=== PATIENT | female | born 1980 | race Caucasian/White ===

== ENCOUNTER 2017-11-16 07:02 | Day surgery (SDC) | payer OTHER ==
[~2017-11-16] VITALS: Ht 172.7 cm; Wt 99.8 kg
[~2017-11-16 07:02] MED LIST: ADVIL200 MG PO; AMITRIPTYLINE H10 MG PO; ATARAX,VISTARIL25 MG PO; Ascorbic Acid,Ester- PO; BENADRYL25 MG PO; BUTALBITAL COM1 EAC1 PO; Benadryl PO; CALCIUM PO; CARAFATE100 MG/ML; CARAFATE100 MG/ML PO; CELEBREX200 MG PO; CIPRO500 MG PO; CYANOCOBALAM1000 MCG PO; Carafate PO; DAILY VALUE1 EACH PO; DULCOLAX5 MG PO; ELAVIL25 MG PO; ESTRACE1 MG PO; EX-LAX5 MG PO; GAS-X80 MG PO; LEVOXYL50 MCG PO; Levothroid,Synthroid PO; OXYCODONE HCL10 MG PO; PERCOCET 10/1 TABLET PO; PERCOCET 5/31 TABLET PO; PYRIDIUM200 MG PO; Prilosec PO; SERTRALINE HCL25 MG PO; THERAGRAN1 TABLET PO; Tylenol Extra Streng PO; VALIUM10 MG PO; VITAMIN B12 PO; Valium PO; Vicodin,Lortab 5/500 PO; Vicodin,Norco 5/325 PO; ZANAFLEX2 M1 PO; ZOFRAN4 MG PO; ZOLOFT100 MG PO; [UNRECOGNIZED DRUG - OTHER] PO
== END 2017-11-16 08:43 | disposition home or self-care (01) ==
LOC: PAIN 07:02 → SDC 07:30 → PAIN 07:30
PROC: BR161ZZ Fluoroscopy of Lumbar Facet Joint(s) using Low Osmolar Contrast (ICD-10-PCS; principal; 2017-11-16)
PROC: 3E0T3TZ Introduction of Destructive Agent into Peripheral Nerves and Plexi, Percutaneous Approach (ICD-10-PCS; principal; 2017-11-16)
DX: M47.26 Other spondylosis with radiculopathy, lumbar region (principal); M51.16 Intervertebral disc disorders with radiculopathy, lumbar region; G89.29 Other chronic pain; M25.559 Pain in unspecified hip; Z79.891 Long term (current) use of opiate analgesic; F41.8 Other specified anxiety disorders; E03.9 Hypothyroidism, unspecified; G47.33 Obstructive sleep apnea (adult) (pediatric); Z98.84 Bariatric surgery status
CPT/HCPCS: J1030; J2250; J3010; S0020

== ENCOUNTER 2017-11-23 08:00 | Day surgery (SDC) | payer OTHER ==
[~2017-11-23] VITALS: Ht 172.7 cm; Wt 99.7 kg
== END 2017-11-23 09:35 | disposition home or self-care (01) ==
LOC: PAIN 08:00 → SDC 08:30 → PAIN 09:35
PROC: BR161ZZ Fluoroscopy of Lumbar Facet Joint(s) using Low Osmolar Contrast (ICD-10-PCS; principal; 2017-11-23)
PROC: 3E0T3TZ Introduction of Destructive Agent into Peripheral Nerves and Plexi, Percutaneous Approach (ICD-10-PCS; principal; 2017-11-23)
DX: M47.816 Spondylosis without myelopathy or radiculopathy, lumbar region (principal); G89.29 Other chronic pain; M54.5 Low back pain; M25.559 Pain in unspecified hip; M53.3 Sacrococcygeal disorders, not elsewhere classified; Z79.891 Long term (current) use of opiate analgesic
CPT/HCPCS: J1030; J1885; J2250; J3010; S0020

== ENCOUNTER 2018-02-28 11:05 | Emergency (ER) | payer OTHER ==
[~2018-02-28] VITALS: Ht 170.2 cm; Wt 101.7 kg
[~2018-02-28 11:05] MED LIST changes: +IRON325 M1 PO; +TOPAMAX25 MG PO; +TRAZODONE HCL100 MG PO
[2018-02-28 11:26] LABS: HEMOGLOBIN 12.7 G/DL (11.9-15.5); MCHC 33.4 G/DL (30.0-36.0); MCV 89.6 FL (83-99); PLATELET COUNT 276 K/uL (156-360); RBC DIS.WIDTH-CV 12.7 % (11.8-14.6); RBC DIS.WIDTH-SD 41.2 % (39-53); RED BLOOD COUNT 4.24 M/uL (3.80-5.20); WHITE BLOOD COUNT 5.5 K/uL (4.1-10.2)
[2018-02-28 11:41] LABS: APPEARANCE CLEAR ((CLEAR)); BILIRUBIN NEGATIVE; BLOOD NEGATIVE; COLOR STRAW ((YELLOW)); GLUCOSE (STRIP) NEGATIVE; KETONES NEGATIVE; LEUKOCYTES NEGATIVE; NITRITE NEGATIVE; PROTEIN (STRIP) NEGATIVE; SPECIFIC GRAVITY 1.003 (1.000-1.030); UCUL ADDED? NO; UROBILINOGEN 0.2 MG/DL (0.2-1.0)
[2018-02-28 11:50] LABS: ALBUMIN 4.5 g/dL (3.2-4.8)
[2018-02-28 11:51] LABS: CHLORIDE 108 mEq/L (99-109); POTASSIUM 3.8 mEq/L (3.7-5.4); SODIUM 146 mEq/L (136-147)
[2018-02-28 11:53] LABS: GLUCOSE 61 mg/dL (70-99); TOTAL PROTEIN 7.5 g/dL (6.4-8.3)
[2018-02-28 11:55] LABS: TOTAL BILIRUBIN 0.3 mg/dL (0.0-1.0)
[2018-02-28 11:56] LABS: ALKALINE PHOSPHATASE 106 IU/L (3-129); CREATININE 0.8 mg/dL (0.6-1.3); GFR ESTIMATE (CALCULATED) > 59 mL/min/
[2018-02-28 11:58] LABS: AST (GOT) 20 IU/L (2-34); UREA NITROGEN (BUN) 4 mg/dL (9-23)
[2018-02-28 11:59] LABS: ALT (GPT) 17 IU/L (3-49)
[2018-02-28 12:09] LABS: QUANTITATIVE HCG < 4.0 MIU/ML
[2018-02-28] MEDS ORDERED: BENTYL20 MG PO (14:48)
[2018-02-28 15:27] VITALS: BP 108/66
== END 2018-02-28 15:30 | disposition home or self-care (01) ==
LOC: EME 11:05
DX: R10.32 Left lower quadrant pain (principal); Z98.84 Bariatric surgery status; Z90.49 Acquired absence of other specified parts of digestive tract; Z90.710 Acquired absence of both cervix and uterus; K21.9 Gastro-esophageal reflux disease without esophagitis; J45.909 Unspecified asthma, uncomplicated; F41.9 Anxiety disorder, unspecified; F32.9 Major depressive disorder, single episode, unspecified; G43.909 Migraine, unspecified, not intractable, without status migrainosus; Z87.442 Personal history of urinary calculi; Z88.5 Allergy status to narcotic agent
CPT/HCPCS: 74018; 80053; 81003; 84702; 85027; 99281; 99284; J0500

== ENCOUNTER 2018-03-10 22:06 | Observation (INO) | payer OTHER ==
[~2018-03-10] VITALS: Ht 170.2 cm; Wt 101.2 kg
[~2018-03-10 22:06] MED LIST changes: +BENTYL20 MG PO; -TRAZODONE HCL100 MG PO; +TRAZODONE HCL150 MG PO
[2018-03-10 22:39] LABS: HEMATOCRIT 37.3 % (36.0-46.0); HEMOGLOBIN 12.3 G/DL (11.9-15.5); MCH 29.6 PG (29.0-34.0); MCV 89.7 FL (83-99); PLATELET COUNT 318 K/uL (156-360); RBC DIS.WIDTH-CV 12.8 % (11.8-14.6); RBC DIS.WIDTH-SD 41.7 % (39-53); RED BLOOD COUNT 4.16 M/uL (3.80-5.20); WHITE BLOOD COUNT 9.3 K/uL (4.1-10.2)
[2018-03-10 22:53] LABS: ALBUMIN 4.5 g/dL (3.2-4.8); CHLORIDE 104 mEq/L (99-109); POTASSIUM 3.6 mEq/L (3.7-5.4); SODIUM 141 mEq/L (136-147)
[2018-03-10 22:55] LABS: GLUCOSE 118 mg/dL (70-99); TOTAL PROTEIN 7.8 g/dL (6.4-8.3)
[2018-03-10 22:57] LABS: TOTAL BILIRUBIN 0.3 mg/dL (0.0-1.0)
[2018-03-10 22:59] LABS: ALKALINE PHOSPHATASE 113 IU/L (3-129); CREATININE 0.8 mg/dL (0.6-1.3); GFR ESTIMATE (CALCULATED) > 59 mL/min/
[2018-03-10 23:00] LABS: UREA NITROGEN (BUN) 10 mg/dL (9-23)
[2018-03-10 23:01] LABS: AST (GOT) 17 IU/L (2-34)
[2018-03-10 23:02] LABS: ALT (GPT) 18 IU/L (3-49)
[2018-03-10 23:09] LABS: QUANTITATIVE HCG 4.3 MIU/ML
[2018-03-10 23:46] LABS: APPEARANCE SL.HAZY ((CLEAR)); BILIRUBIN NEGATIVE; BLOOD NEGATIVE; COLOR YELLOW ((YELLOW)); GLUCOSE (STRIP) NEGATIVE; KETONES NEGATIVE; LEUKOCYTES TRACE; NITRITE NEGATIVE; PROTEIN (STRIP) NEGATIVE; SPECIFIC GRAVITY 1.012 (1.000-1.030); UROBILINOGEN 0.2 MG/DL (0.2-1.0)
[2018-03-11 00:08] LABS: BACTERIA NONE SEEN /HPF; EPITHELIAL CELLS 2+ /HPF; MUCUS TRACE /LPF; RED BLOOD CELLS 0-5 /HPF (0-5); UCUL ADDED? NO; WHITE BLOOD CELLS 0-5 /HPF (0-5)
[2018-03-11 06:02] LABS: LIPASE 18 U/L (1.0-51.0)
[2018-03-11 07:54] VITALS: BP 105/66
[2018-03-11] MEDS ORDERED: DICYCLOMINE HCL20 MG PO (10:35)
[2018-03-11] MEDS ORDERED: OMEPRAZOLE40 M1 PO (10:38)
[2018-03-11 12:00] VITALS: BP 102/55
[2018-03-11] MEDS ORDERED: LEVOFLOXACIN500 MG PO (14:08)
[2018-03-11 15:20] VITALS: BP 98/51
[2018-03-11 19:30] VITALS: BP 112/71
[2018-03-12 00:40] VITALS: BP 122/60
[2018-03-12 03:44] VITALS: BP 95/59
[2018-03-12 06:47] VITALS: BP 104/69
[2018-03-12 08:33] LABS: HEMATOCRIT 35.9 % (36.0-46.0); HEMOGLOBIN 11.3 G/DL (11.9-15.5); MCH 28.7 PG (29.0-34.0); MCHC 31.5 G/DL (30.0-36.0); MCV 91.1 FL (83-99); PLATELET COUNT 275 K/uL (156-360); RBC DIS.WIDTH-CV 12.7 % (11.8-14.6); RBC DIS.WIDTH-SD 41.8 % (39-53); RED BLOOD COUNT 3.94 M/uL (3.80-5.20); WHITE BLOOD COUNT 6.1 K/uL (4.1-10.2)
[2018-03-12 09:07] LABS: CHLORIDE 101 MEQ/L (99-109); CREATININE 0.7 MG/DL (0.6-1.3); GFR ESTIMATE (CALCULATED) > 59 mL/min/; POTASSIUM 4.1 MEQ/L (3.7-5.4); SODIUM 141 MEQ/L (136-147); UREA NITROGEN (BUN) 7 mg/dL (9-23)
[2018-03-12 09:08] LABS: GLUCOSE 87 mg/dL (70-99)
[2018-03-12 11:26] VITALS: BP 106/67
[2018-03-12 15:33] VITALS: BP 103/61
[2018-03-12 20:05] VITALS: BP 100/58
[2018-03-13 00:31] VITALS: BP 98/53
[2018-03-13 04:48] VITALS: BP 100/58
[2018-03-13 05:11] LABS: HEMATOCRIT 31.2 % (36.0-46.0); MCH 28.9 PG (29.0-34.0); MCHC 32.1 G/DL (30.0-36.0); MCV 90.2 FL (83-99); PLATELET COUNT 232 K/uL (156-360); RBC DIS.WIDTH-CV 12.5 % (11.8-14.6); RBC DIS.WIDTH-SD 40.9 % (39-53); RED BLOOD COUNT 3.46 M/uL (3.80-5.20); WHITE BLOOD COUNT 4.1 K/uL (4.1-10.2)
[2018-03-13 05:39] LABS: IRON 54 MCG/DL (35-150)
[2018-03-13 05:40] LABS: ALBUMIN 3.4 G/DL (3.2-4.8); C-REACTIVE PROTEIN 1.1 MG/L (0-10); CHLORIDE 108 MEQ/L (99-109); CREATININE 0.6 MG/DL (0.6-1.3); GFR ESTIMATE (CALCULATED) > 59 mL/min/; GLUCOSE 79 mg/dL (70-99); PHOSPHORUS 4.3 mg/dL (2.5-4.9); POTASSIUM 3.8 MEQ/L (3.7-5.4); SODIUM 145 MEQ/L (136-147); UREA NITROGEN (BUN) 4 mg/dL (9-23)
[2018-03-13 07:58] LABS: FERRITIN 6 NG/ML (10-291)
[2018-03-13 08:05] LABS: ERTH.SED.RATE 3 MM/HR (0-20)
[2018-03-13 08:17] LABS: FOLIC ACID (FOLATE) > 22.0 NG/ML (5.0-22.0)
[2018-03-13 09:17] VITALS: BP 106/69
[2018-03-13 12:35] VITALS: BP 110/67
[2018-03-13 15:46] VITALS: BP 121/68
[2018-03-13 18:30] VITALS: BP 113/75
[2018-03-13] MEDS ORDERED: FIORICET 50-301 EAC1 PO (20:52)
[2018-03-14] VITALS: BP 98/56
[2018-03-14 04:00] VITALS: BP 98/53
[2018-03-14 06:47] VITALS: BP 99/60
[2018-03-14] MEDS ORDERED: LEVOTHYROXINE88 MCG PO (10:45)
[2018-03-14 11:30] VITALS: BP 115/78
== END 2018-03-14 13:30 | disposition short-term general hospital (02) ==
LOC: EME 22:06 → EDOF 03-11 05:41 → 4SOUTH 03-11 05:41 → ENRESERV 03-11 05:45 → 4SOUTH 03-11 07:48 → ENPENDDIS 03-14 13:15 → 4SOUTH 03-14 13:30
PROVIDERS: Internal Medicine Gastroenterology; Nurse Practitioner Family; Physician Assistant
PROC: 0DBB8ZX Excision of Ileum, Via Natural or Artificial Opening Endoscopic, Diagnostic (ICD-10-PCS; principal; 2018-03-13)
PROC: 0DBA8ZX Excision of Jejunum, Via Natural or Artificial Opening Endoscopic, Diagnostic (ICD-10-PCS; principal; 2018-03-13)
PROC: 0DBE8ZX Excision of Large Intestine, Via Natural or Artificial Opening Endoscopic, Diagnostic (ICD-10-PCS; principal; 2018-03-13)
PROC: 0DB78ZX Excision of Stomach, Pylorus, Via Natural or Artificial Opening Endoscopic, Diagnostic (ICD-10-PCS; principal; 2018-03-13)
DX: R10.84 Generalized abdominal pain (principal); K29.70 Gastritis, unspecified, without bleeding; K28.7 Chronic gastrojejunal ulcer without hemorrhage or perforation; Z98.84 Bariatric surgery status; R68.81 Early satiety; Z91.19 Patient's noncompliance with other medical treatment and regimen; K21.9 Gastro-esophageal reflux disease without esophagitis; K64.8 Other hemorrhoids; D64.9 Anemia, unspecified; Z87.442 Personal history of urinary calculi; Z98.890 Other specified postprocedural states; G43.909 Migraine, unspecified, not intractable, without status migrainosus; M54.9 Dorsalgia, unspecified; Z90.49 Acquired absence of other specified parts of digestive tract; Z90.710 Acquired absence of both cervix and uterus; R01.1 Cardiac murmur, unspecified; F41.9 Anxiety disorder, unspecified; Z82.49 Family history of ischemic heart disease and other diseases of the circulatory system; Z88.5 Allergy status to narcotic agent
CPT/HCPCS: 74177; 80048; 80053; 80069; 81003; 82306; 82607; 82728; 82746; 83540; 83690; 84439; 84443; 84702; 85027; 85651; 86140; 88305; 88342 TC; 99281; 99285; G0378; J0500; J2250; J2405; J3420; J7030; J7120; S0028